=== PATIENT | female | born 1995 | race Caucasian/White ===

== ENCOUNTER 2017-08-03 20:41 | Emergency (ER) | payer OTHER ==
[2017-08-03] MEDS ORDERED: Alum Hydrox/Mag Hydrox/Simeth 30 ML, Lidocaine 2% 15 ML PO ONE ×2 (21:28)
--- NOTE | 2017-08-03 22:30 | EDM.PDOC ---
ED HPI GENERAL MEDICAL PROBLEM - General Chief Complaint: Abdominal Pain Stated Complaint: ABDOMINAL PAIN Time Seen by Provider: 08/03/17 21:23 Source of Information: Reports: Patient History Limitations: Reports: No Limitations - History of Present Illness INITIAL COMMENTS - FREE TEXT/NARRATIVE: This lady complains of upper abdominal pain for 3 or 4 days. She says it is much worse when she lays down at night. She sometimes feels dizzy and lightheaded in the morning some nausea during the day food seems to help a lot at least temporarily. No chance of . She hasn't tried any kind of medications for this. Upper Abdomen Pain Score (Numeric/FACES): 4 - Related Data Allergies Allergy/AdvReac Type Severity Reaction Status Date / Time Penicillins Allergy Airway Verified 08/03/17 21:00 Tightness Home Meds: Home Meds NK [No Known Home Meds] 08/03/17 [History] Past Medical History Gastrointestinal History: Reports: Gastritis [employer] History: Reports: Musculoskeletal History: Reports: Fracture Neurological History: Reports: Headaches, Chronic - Past Surgical History GI Surgical History: Reports: Appendectomy Social & Family History - Tobacco Use Smoking Status *Q: Current Every Day Smoker Years of Tobacco use: 10 Packs/Tins Daily: 0.4 - Caffeine Use Caffeine Use: Reports: Soda - Recreational Drug Use Recreational Drug Use: No ED ROS GENERAL - Review of Systems Review Of Systems: ROS reveals no pertinent complaints other than HPI. ED EXAM, GI/ABD - Physical Exam Exam: See Below Exam Limited By: No Limitations General Appearance: Alert, WD/WN, Mild Distress Eyes: Bilateral: Normal Appearance Throat/Mouth: Normal Oropharynx Respiratory/Chest: Lungs Clear Cardiovascular: Regular Rate, Rhythm GI/Abdominal Exam: Normal Bowel Sounds, Soft, Non-Tender Extremities: Normal Inspection Neurological: Alert, Oriented Psychiatric: Normal Affect Skin Exam: Warm, Dry Course - Vital Signs Last Recorded V/S: Last Vital Signs Temp 35.9 C 08/03/17 20:54 Pulse 77 08/03/17 20:54 Resp 16 08/03/17 20:54 BP 117/75 08/03/17 20:54 Pulse Ox 99 08/03/17 20:54 - Orders/Labs/Meds Meds: Medications Discontinued Medications Generic Name Dose Route Start Last Admin Trade Name Freq PRN Reason Stop Dose Admin Al Hydroxide/Mg Hydroxide 30 0 ml 08/03/17 21:28 08/03/17 21:33 ml/ Lidocaine HCl 15 ml PO 08/03/17 21:29 45 ml ONETIME ONE Administration - Re-Assessments/Exams Free Text/Narrative Re-Assessment/Exam: 08/04/17 06:34 Patient received a GI cocktail and that gave good relief of the pain. At the time of her discharge it would stimulate the get a prescription filled at a local pharmacy so she will get it filled in the morning but tonight she will take one of her mother's omeprazole tablets. Departure - Departure Time of Disposition: 22:28 Disposition: Home, Self-Care 01 Condition: Fair Clinical Impression: Gastroesophageal reflux - Discharge Information Instructions: Gastroesophageal Reflux Disease, Adult, [id number] Referrals: PCP,None [Primary Care Provider] - Forms: ED Department Discharge Additional Instructions: Take omeprazole 20 mg daily. This will cut down on stomach acid. Use this for one or 2 weeks. Hopefully the problem will be solved when you stop the medication. If you need anything for the reflux symptoms while taking the omeprazole he can use any antacids such as Maalox or Mylanta or even Tums tablets. If you take the Tums tablets you need to take at least 3 or 4 tablets at once and chew them well. You can use Tums as often as you like. See your if this problem continues past a week or 2.
== END 2017-08-03 22:39 | disposition home or self-care (01) ==
LOC: JP.ED 20:41
DX: K21.9 Gastro-esophageal reflux disease without esophagitis (principal); F17.210 Nicotine dependence, cigarettes, uncomplicated; Z88.0 Allergy status to penicillin
CPT/HCPCS: 99284; A9270

== ENCOUNTER 2017-12-24 21:16 | Emergency (ER) | payer OTHER, MEDICAID ==
[2017-12-24] MEDS ORDERED: Diphtheria,Pertussis(Acell),Tetanus Vaccine 0.5 ML SDV IM ONE (21:42)
--- NOTE | 2017-12-24 21:49 | EDM.PDOC ---
ED HPI GENERAL MEDICAL PROBLEM - General Chief Complaint: General Stated Complaint: MED VIA [facility] Time Seen by Provider: 12/24/17 21:30 Source of Information: Reports: Patient - History of Present Illness INITIAL COMMENTS - FREE TEXT/NARRATIVE: Earlier this evening was fishing [place] [email or web address] when accidentally got a fish hook stuck in her left thigh. Not sure of tetanus status. 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: Musculoskeletal History: Reports: Fracture Neurological History: Reports: Headaches, Chronic - Past Surgical History GI Surgical History: Reports: Appendectomy Social & Family History - Caffeine Use Caffeine Use: Reports: Soda ED ROS GENERAL - Review of Systems Review Of Systems: See Below Constitutional: Reports: No Symptoms HEENT: Reports: No Symptoms Respiratory: Reports: No Symptoms Cardiovascular: Reports: No Symptoms Endocrine: Reports: No Symptoms GI/Abdominal: Reports: No Symptoms : Reports: No Symptoms Musculoskeletal: Reports: No Symptoms Skin: Reports: No Symptoms, Other (fish hook lodged in skin) Neurological: Reports: No Symptoms Psychiatric: Reports: No Symptoms Hematologic/Lymphatic: Reports: No Symptoms Immunologic: Reports: No Symptoms ED EXAM, GENERAL - Physical Exam Exam: See Below Exam Limited By: No Limitations General Appearance: Alert, WD/WN Ears: Normal External Exam Nose: Normal Inspection Head: Atraumatic, Normocephalic Neck: Normal Inspection, Supple Respiratory/Chest: No Respiratory Distress Cardiovascular: Regular Rate, Rhythm GI/Abdominal: Soft, Non-Tender Back Exam: Normal Inspection Extremities: Other (single hook of treble hook lodge in lateral left thigh) Neurological: Alert, Oriented Psychiatric: Normal Affect Skin Exam: Warm, Dry Course - Orders/Labs/Meds Orders: Active Orders 24 hr Category Date Time Status Vaccines to be Administered [RC] PER UNIT ROUTINE Care 12/24/17 21:42 Ordered Diphth,Pertuss(Acell),Tet Vac [Adacel] Med 12/24/17 21:42 Once 0.5 ml IM .ONCE ONE Medication Orders Diphtheria/Tetanus/Acell Pertussis (Adacel) 0.5 ml IM .ONCE ONE Stop: 12/24/17 21:43 Meds: Medications Generic Name Dose Route Start Last Admin Trade Name Hector PRN Reason Stop Dose Admin Diphtheria/Tetanus/Acell Pertussis 0.5 ml 12/24/17 21:42 Adacel IM 12/24/17 21:43 .ONCE ONE - Re-Assessments/Exams Free Text/Narrative Re-Assessment/Exam: Healthy 22 yo presents with fish hook in left thigh After administration of local anesthetic (1% lido) was removed by advancing and clipping nadira Tdap updated Discharged, knows to see physician for signs of infection 12/24/17 21:54 Departure - Departure Time of Disposition: 21:46 Disposition: Home, Self-Care 01 Condition: Good Clinical Impression: Foreign body (FB) in soft tissue - Discharge Information *PRESCRIPTION DRUG MONITORING PROGRAM REVIEWED*: No *COPY OF PRESCRIPTION DRUG MONITORING REPORT IN PATIENT AKI: No Referrals: PCP,None [Primary Care Provider] - Additional Instructions: Please see your doctor for worsening swelling, discharge, or pain as discussed - My Orders Last 24 Hours: My Active Orders 12/24/17 21:42 Vaccines to be Administered [RC] PER UNIT ROUTINE Diphth,Pertuss(Acell),Tet Vac [Adacel] 0.5 ml IM .ONCE ONE - Assessment/Plan Last 24 Hours: My Active Orders 12/24/17 21:42 Vaccines to be Administered [RC] PER UNIT ROUTINE Diphth,Pertuss(Acell),Tet Vac [Adacel] 0.5 ml IM .ONCE ONE
== END 2017-12-24 21:58 | disposition home or self-care (01) ==
LOC: JP.ED 21:16
DX: S70.352A Superficial foreign body, left thigh, initial encounter (principal); Z23 Encounter for immunization; W45.8XXA Other foreign body or object entering through skin, initial encounter; Z88.0 Allergy status to penicillin
CPT/HCPCS: 90471; 90715; 99284-25